=== PATIENT | female | born 1950 | race Caucasian/White ===

== ENCOUNTER 2016-07-13 09:32 | Inpatient (IN) | payer BC, OTHER ==
[2016-06-24 11:52] VITALS: BMI 29.0
--- NOTE | 2016-06-24 12:20 | PAT Medication Instructions ---
Service Date Jun 24, 2016. Current Home Medication List Aspirin (Aspirin Ec), 325 MG PO QAM Atorvastatin (Lipitor), 40 MG PO QPM Calcium Carbonate-Vitamin D (Calcium + D), 1,000 UNITS PO QAM Ibuprofen Tab (Advil), 400 MG PO PRN Levothyroxine Sodium (Levothyroxine Sodium), 1 TAB PO QAM Losartan Potassium (Cozaar), 50 MG PO QAM Mesalamine (Asacol Hd), 800 MG PO TID Metformin Hcl Er (Glucophage Er), 1,000 MG PO BID Medication Instructions For Your Scheduled Surgery Aspirin (Aspirin Ec), 325 MG PO QAM (change from aspirin 325mg to aspirin 81mg one week prior to surgery and continue as usual) - Hold the following medications 7-10 days prior to surgery: Ibuprofen Tab (Advil), 400 MG PO PRN - Hold the following medications 48 hours prior to surgery: Metformin Hcl Er (Glucophage Er), 1,000 MG PO BID - Hold the following medications the morning of surgery: Mesalamine (Asacol Hd), 800 MG PO TID (not told to stop by surgeon) Losartan Potassium (Cozaar), 50 MG PO QAM Calcium Carbonate-Vitamin D (Calcium + D), 1,000 UNITS PO QAM - Take the following medications the morning of surgery with a sip of water: Levothyroxine Sodium (Levothyroxine Sodium), 1 TAB PO QAM Aspirin 81mg Tylenol (if needed) - Take the following medications as scheduled the night before surgery: Mesalamine (Asacol Hd), 800 MG PO TID (not told to stop by surgeon) Atorvastatin (Lipitor), 40 MG PO QPM Tylenol (if needed) If you have any questions please call us at [phone] or [phone] ( [place]) or [phone]
[2016-06-24 13:00] LABS: BASO ABS # 0.07 K/uL (0-0.2); COMPLETE YES; EOS % 2.9 %; HEMATOCRIT 40.8 % (37-47); IG% 0.3 %; LYMPH % 20.3 %; LYMPH ABS # 1.39 K/uL (1.2-3.4); MEAN CELL VOLUME 83.6 fL (80-100); MEAN CORPUSCULAR HEMOGLOBIN 28.3 pg (25-34); MEAN CORPUSCULAR HGB CONC 33.8 g/dl (32-36); MEAN PLATELET VOLUME 9.4 fL (7.4-10.4); MONO % 6.6 %; NEUT % 68.9 %; PLATELET COUNT 367 K/uL (130-400); RED BLOOD COUNT 4.88 M/uL (4.2-5.4); WHITE BLOOD COUNT 6.85 K/uL (4.8-10.8)
[2016-06-24 13:04] LABS: URINE APPEARANCE CLEAR (CLEAR); URINE BILIRUBIN NEG (NEG); URINE COLOR YELLOW; URINE NITRITE NEG (NEG); URINE SPECIFIC GRAVITY 1.026 (1.000-1.030); UROBILINOGEN NEG (NEG); ZZUR CULT IF INDIC CLEAN CATCH NO
[2016-06-24 13:06] LABS: MANUAL MICROSCOPIC REQUIRED? NO; REVIEW REQ? NO
[2016-06-24 13:08] LABS: PARTIAL THROMBOPLASTIN RATIO 0.9; PROTHROMBIN TIME (PATIENT) 10.2 SECONDS (9.0-12.0)
--- NOTE | 2016-06-24 13:12 | DIAGNOSTIC IMAGING REPORT ---
TWO VIEW CHEST CLINICAL HISTORY: Preoperative examination. FINDINGS: PA and lateral chest radiographs are obtained. No prior studies are available for comparison at the time of dictation. The examination is modestly degraded by large body habitus. The heart is top normal for projection. There is mild atherosclerotic calcification of the thoracic and. The pulmonary vasculature is noncongested. Nonspecific interstitial thickening is noted. The lungs and pleural spaces are clear. There is no pneumothorax. The skeletal structures are osteopenic. Degenerative changes noted throughout the thoracic spine. Cholecystectomy clips are identified. IMPRESSION: No active disease in the chest. Electronically signed by: Edvin Sutton M.D. 06/24/2016 1:11 PM Dictated Date/Time: 06/24/2016 1:10 PM
[2016-06-24 13:26] LABS: BUN/CREATININE RATIO 19.3 (10-20); CALCIUM 8.9 mg/dl (8.5-10.1); CREATININE 0.89 mg/dl (0.60-1.20); POTASSIUM 3.5 mmol/L (3.5-5.1)
[2016-06-24 13:40] LABS: ESTIMATED AVERAGE GLUCOSE 157 mg/dl; HA1C FLAG Normal (Normal)
--- NOTE | 2016-07-12 08:27 | HISTORY & PHYSICAL EXAMINATION ---
DATE OF ADMISSION: 07/13/2016 CHIEF COMPLAINT: Right hip pain. HISTORY OF PRESENT ILLNESS: Dalia is a 66-year-old female with a multiple-year history of pain in her right hip. She rates her pain an 8/10. She has pain with her daily activities. She has limited standing and walking tolerance. Pain is worse with weightbearing. She has had home exercise program and anti-inflammatories without relief. She has failed conservative treatment and is scheduled for right hip replacement. PAST MEDICAL HISTORY: Hypertension, hypercholesterolemia, borderline diabetes. She denies heart disease or DVT. PAST SURGICAL HISTORY: Left total knee arthroplasty, breast reduction and discectomy. SOCIAL HISTORY: The patient denies alcohol or tobacco use. She lives in a single story home. She is and works as a [employer]. FAMILY HISTORY: Negative for DVT. MEDICATIONS: Metformin 500 mg 4 tablets daily, Asacol 800 mg 3 tablets daily, atorvastatin 40 mg daily, levothyroxine 25 mcg daily, Cozaar 50 mg daily, vitamin D 1000 IU daily, aspirin 325 mg daily. ALLERGIES: None. REVIEW OF SYSTEMS: See HPI. Ten other systems reviewed, all negative. PHYSICAL EXAMINATION: VITAL SIGNS: Height 5 foot 7, weight 197 pounds. BMI is 30. GENERAL: This is a well-developed, well-nourished female who is alert and oriented x3. Mood and affect are appropriate. HEENT: Normocephalic, atraumatic. Mucous membranes are moist and intact. NECK: Supple without lymphadenopathy. HEART: Regular rate and rhythm without murmurs, rubs or gallops. LUNGS: Clear to auscultation without wheezes or rhonchi. ABDOMEN: Soft and nontender. Bowel sounds are equal and active. EXTREMITIES: No ecchymosis, redness or warmth. Thigh and calf are soft and nontender. Log roll of the hip reproduces pain in the groin. She is neurovascularly intact. She walks with an antalgic gait. She has mild trochanteric tenderness. She has no distal edema. She is neurovascularly intact. X-RAY EXAMINATION: AP and lateral views show joint space narrowing and osteophyte formation. IMPRESSION: Degenerative joint disease, right hip. PLAN: The patient will be admitted for a right total hip arthroplasty. We will plan on aspirin for DVT prophylaxis. PCP is Dr. Alfredito Ward in [place]. She will have [facility] for home physical therapy.
[~2016-07-13] VITALS: Ht 170.2 cm; Wt 86.6 kg
[~2016-07-13 09:32] MED LIST: ACETAMINOPHEN 500 MG TAB PO SCH; ASPI325T39 PO; ATOR-24 PO; BUPIVACAINE 0.5 % 5 MG/1 ML PF 10ML VIAL ONE; CALC600T9 PO; CEFAZOLIN 2000 MG/60 ML D5W 60 ML IV SCH; CeleBREX 200 MG CAP PO SCH; FAMOTIDINE 20 MG TAB PO SCH; GABAPENTIN 300 MG CAP PO SCH; IBUP-103 PO; LACTATED RINGER'S 1000ML 1,000 ML IV SCH; LEVO25TA5 PO; LOSA50TA6 PO; MESA800T6 PO; METF500T5 PO; METOCLOPRAMIDE HCL 10 MG TAB PO SCH; OXYCODONE HCL 10 MG TABCR (OXYCONTIN) PO SCH; POLYMYXIN B SULFATE 100,000 UNITS in NSS 100ML IR SCH; ROPIVACAINE 5MG/ML 30 ML 150 MG, BUPIVACAINE/EPINEPHR 0.5% MPF 30 ML, KETOROLAC TROMETH... INFIL SCH; VANCOMYCIN INJ 400 MG in NSS 100ML IR SCH
[2016-07-13 09:52] VITALS: BP 143/92; PULSE 84; TEMP 36.8; O2SAT 97; Ht 170.2 cm; Wt 86.6 kg
[2016-07-13] MEDS ORDERED: NURSING VERBAL MED ORDER STA (10:09)
[2016-07-13] MEDS ORDERED: SCOPOLAMINE 1.5 MG TDSY TD ONE (10:15)
--- NOTE | 2016-07-13 11:43 | History & Physical Bridge Note ---
H&P Re-Evaluation Bridge Note: I have examined the patient, reviewed the History & Physical and in the interval since the performance of the History & Physical I have noted the following changes of clinical significance: No changes noted
[2016-07-13] MEDS ORDERED: FENTANYL CITRATE INJ 50 MCG/1 ML 2 ML VIAL ONE (11:49)
[2016-07-13] MEDS ORDERED: MIDAZOLAM HCL 1 MG/ML 2ML VIAL ONE (11:49)
[2016-07-13] MEDS ORDERED: LACTATED RINGER'S 1000ML 1,000 ML IV PRN (12:07)
[2016-07-13] MEDS ORDERED: POVIDONE-IODINE OP SOLN 30 ML BTL ONE (12:07)
[2016-07-13] MEDS ORDERED: BACITRACIN 50000 UNIT VIAL ONE (12:07)
[2016-07-13] MEDS ORDERED: ORTHO JOINT ANESTHETIC ONE (12:07)
[2016-07-13] MEDS ORDERED: PROPOFOL IV EMULSION 10 MG/ML 20 ML VIAL IV ONE (12:09)
[2016-07-13] MEDS ORDERED: LIDOCAINE HCL 2% 2 ML VIAL (20MG/ML) ONE (12:09)
[2016-07-13] MEDS: TRANEXAMIC ACID INJ 1,000 MG in SODIUM CHLORIDE 0.9% 100ML 100 ML IV SCH ×2 (12:13→16:09)
[2016-07-13] MEDS ORDERED: FENTANYL CITRATE INJ 50 MCG/1 ML 2 ML VIAL IV PRN (12:15)
[2016-07-13] MEDS ORDERED: ONDANSETRON INJ 2 MG/ML 2 ML VIAL IV PRN ×2 (12:15→14:15)
[2016-07-13] MEDS ORDERED: PHENYLEPHRINE 100MCG/ML 5ML SYR ONE (13:04)
--- NOTE | 2016-07-13 14:08 | [facility] Post Operative Brief Note ---
Immediate Operative Summary Operative Date Jul 13, 2016. Pre-Operative Diagnosis Right Hip Degenerative Joint Disease Post-Operative Diagnosis Right Hip Degenerative Joint Disease Procedure(s) Performed Right Total Hip Arthroplasty, Direct Anterior Approach Surgeon Dr. Jose Jacobson Airport Driver Surgeon(s) Tamar Ho PA-C Estimated Blood Loss 100 mL Findings DJD Specimens A: Right Femoral Head Complication(s) None Disposition Recovery Room / PACU
[2016-07-13] MEDS ORDERED: DiphenhydrAMINE HCL 50 MG/ML VIAL IV PRN (14:15)
[2016-07-13] MEDS ORDERED: OXYCODONE HCL IR 5 MG TAB (IMMEDIATE RELEASE) PO PRN (14:15)
[2016-07-13] MEDS ORDERED: METOCLOPRAMIDE HCL INJ 5 MG/ML 2 ML VIAL IV PRN (14:15)
[2016-07-13] MEDS ORDERED: BISACODYL 10 MG SUPP PR PRN (14:15)
[2016-07-13] MEDS ORDERED: MoRPHine SULFATE 2 MG/ML CARP IV PRN (14:15)
[2016-07-13] MEDS ORDERED: ALUMINUM/MAGNESIUM/SIMETH (MAALOX MAX) 30 ML UDC PO PRN (14:15)
[2016-07-13] MEDS ORDERED: MAGNESIUM HYDROXIDE SUSP 30 ML UDC PO PRN (14:15)
[2016-07-13] MEDS ORDERED: SOD PHOSPHATE/SOD BIPHOSPHATE ENEMA 132 ML BTL PR PRN (14:15)
[2016-07-13] MEDS ORDERED: TRAMADOL HCL 50 MG TAB PO PRN (14:15)
[2016-07-13] MEDS ORDERED: ZOLPIDEM TARTRATE 5 MG TAB PO PRN (14:15)
--- NOTE | 2016-07-13 14:31 | DIAGNOSTIC IMAGING REPORT ---
INTRAOPERATIVE RIGHT HIP SINGLE VIEW CLINICAL HISTORY: Right hip arthroplasty COMPARISON STUDY: No previous studies for comparison. FINDINGS: 12 seconds of fluoroscopic time was utilized. A single intraoperative fluoroscopic spot images provided for interpretation. There are postsurgical changes of a total right hip artery plasty. There is no dislocation. The distal aspect of the femoral spike is not included on the film IMPRESSION: Postsurgical changes of a total right hip arthroplasty. Electronically signed by: Carlos Salgado M.D. 07/13/2016 2:29 PM Dictated Date/Time: 07/13/2016 2:29 PM
--- NOTE | 2016-07-13 15:07 | DIAGNOSTIC IMAGING REPORT ---
SINGLE VIEW PELVIS; SINGLE VIEW RIGHT HIP CLINICAL HISTORY: Postoperative examination. FINDINGS: An AP portable view of the hips and lower pelvis with a crosstable lateral portable view of the right hip are obtained. A bipolar right hip arthroplasty is in near anatomic alignment. A single cortical lag screw transfixes the acetabular cup. No acute fracture is seen. There are expected postoperative changes overlying the right hip including subcutaneous gas, soft tissue swelling, and a surgical drain. Mild/moderate arthritic change is noted in the left hip. IMPRESSION: Expected postoperative findings status post right hip arthroplasty. No acute fracture is seen. Electronically signed by: Edvin Sutton M.D. 07/13/2016 3:06 PM Dictated Date/Time: 07/13/2016 3:05 PM
[2016-07-13] MEDS ORDERED: PHARMACY GLYCEMIC MGMT CONSULT PRN (15:08)
[2016-07-13] MEDS ORDERED: GLUCAGON FOR INJ 1 MG VIAL SQ PRN (15:15)
[2016-07-13] MEDS ORDERED: DEXTROSE 50% 50 ML SYR IV PRN (15:15)
[2016-07-13] MEDS ORDERED: GLUCOSE 40% GEL 15 GM TUBE PO PRN (15:15)
[2016-07-13] MEDS ORDERED: GLUCOSE 10 TABS/TUBE PO PRN (15:15)
--- NOTE | 2016-07-13 15:16 | Pharmacy Progress Note ---
Glycemic Control Intl Consult Date of Service Jul 13, 2016. Scope Glycemic Pharmacist consulted by Dr Breezy Jacobson on 07/13/16 for glycemic control and to write orders per [facility] inpatient glycemic control protocol Objective Weight (Kilograms): 86.60 Accuchecks BSG (last 24hrs): Test 07/13/16 09:52 07/13/16 14:37 Bedside Glucose 131 mg/dl (70-90) 119 mg/dl (70-90) HbA1c Test 06/24/16 12:30 Hemoglobin A1c 7.1 % (4.5-5.6) H Recent Pertinent Medications Outpatient Anti-diabetic Regimen: * Metformin ER 1g PO BID * A1c = 7.1 % 06/24/16 Risk Factors for Insulin Resistance: * Infection: Pre and post-op Ancef * Recent Surgery: POD #0 Right RONY * Diet: Type 2 DM Assessment & Plan ASSESSMENT: * 66 year old female, type 2 DM, controlled on metformin as outpatient. * I will begin patient on weight based correctional and prandial insulin, no basal, no steroids received. * ADA & AACE recommend a goal blood sugar range 140-180 mg/dl for the majority of critically ill & non-critically ill patients. However, more stringent targets may be selected in individual cases. Goal of 100-140mg/dL for patient's age, A1c, and to facilitate post op healing. PLAN FOR INPATIENT GLYCEMIC CONTROL: * Holding outpatient oral diabetes medications - restart in 1-2 days when renal function and diet evaluated * Correctional Insulin with NOVOLOG per scale ACHS or Q6hrs while NPO * Goal Range: Low 100 mg/dL - High 140 mg/dL * Correction Factor: 35 mg/dL/unit * Nutritional / Prandial insulin per carb ratio of 1 unit per 15 grams CHO consumed * Please note that the plan above was derived based on current level of insulin resistance and hospital stress. These recommendations are appropriate for inpatient admission only. Plan of care upon discharge will need to be reassessed to avoid potential outpatient hypo/hyperglycemia. Thank you.
--- NOTE | 2016-07-13 15:27 | Anesthesiology Progress Note ---
Anesthesia Post Op Note Date & Time Jul 13, 2016 at 15:27 Vital Signs Pain Intensity: 0 Vital Signs Past 12 Hours Date Time Temp Pulse Resp B/P Pulse Ox O2 Delivery O2 Flow Rate FiO2 07/13/16 15:20 36.5 72 18 106/69 100 Nasal Cannula 2 07/13/16 15:10 64 14 112/67 99 Nasal Cannula 2 07/13/16 15:00 66 14 118/76 100 Nasal Cannula 2 07/13/16 14:50 64 16 109/67 100 Mask 10 07/13/16 14:40 66 16 116/70 100 Mask 10 07/13/16 14:30 36.8 76 16 99/64 99 Mask 10 07/13/16 09:52 36.8 84 20 143/92 97 Room Air Notes Mental Status: alert / awake / arousable, participated in evaluation Pt Amnestic to Procedure: Yes Nausea / Vomiting: adequately controlled Pain: adequately controlled Airway Patency, RR, SpO2: stable & adequate BP & HR: stable & adequate Hydration State: stable & adequate Neuraxial Anesthesia: was administered, sensory block is resolving Anesthetic Complications: no major complications apparent Pt doing well.
[2016-07-13 16:15] VITALS: BP 137/80; PULSE 64; TEMP 36.5; O2SAT 98
[2016-07-13] MEDS: CHECK SCOPOLAMINE PATCH PLACEMENT SCH ×2 (16:30→23:48)
[2016-07-13 16:45] VITALS: BP 123/80; PULSE 67; TEMP 36.5; O2SAT 97
[2016-07-13 17:31] VITALS: BP 122/75; PULSE 73; TEMP 36.7; O2SAT 96
--- NOTE | 2016-07-13 17:40 | OPERATIVE REPORT ---
DATE OF OPERATION: 07/13/2016 PREOPERATIVE DIAGNOSIS: Degenerative arthritis, right hip. POSTOPERATIVE DIAGNOSIS: Same. PROCEDURE: Right total hip replacement. SURGEON: Jose Jacobson MD. BUTADIENE CONVERTER UTILITY OPERATOR: ANA MARÍA Sullivan. ANESTHESIA: Spinal. BLOOD LOSS: 100 mL. REPLACEMENT FLUIDS: 1500 mL crystalloid. DRAINS: Hemovacs x1. CULTURES: None. COMPLICATIONS: None. COMPONENTS USED: Llamas \T\ Nephew polar hip system: Acetabulum size 52, femur size 3 standard offset, femoral head 0, and neck length 36 mm Oxinium. NOTE: ANA MARÍA Sullivan was present and assisted throughout due to the complicated nature of this case. She helped with preparation and set up. She first assisted throughout and personally closed the fascial, subcutaneous and skin layers and applied the postoperative dressing. DESCRIPTION: Following satisfactory spinal, the patient was supine. The right leg was placed in the traction device and the left leg in the well leg shook. The right leg was prepared with ChloraPrep and draped sterilely. Following a surgical time-out, an anterior approach was performed in the interval between the sartorius and tensor muscles. The circumflex femoral vessels were identified and ligated. An anterior capsulotomy was performed exposing a severely arthritic femoral neck and head. The femoral neck and head were trimmed and removed and the acetabular self-retraining retractor was placed. Acetabular reaming and preparation was completed under fluoroscopy and a 52 shell was impacted into an anatomic position and secured with a dome screw. Local anesthetic was placed and after irrigation, the poly liner was placed. The femur was placed into position of external rotation, extension and adduction. Femoral canal was identified and prepared up to a size 3. A trial reduction with a 0 neck length head showed restorationism of leg lengths using fluoroscopy and good fit and fill of the proximal canal with fluoroscopy. The trial components were removed. The capsule was prepared with the orthopedic cocktail and after irrigation, the final implant was placed, the hip was reduced with fluoroscopy confirming the position. A Betadine soak was performed for 5 minutes. After 5 minutes, the Betadine was irrigated. The capsule was closed with 1 Vicryl interrupted. The drain was placed, the fascia with a running suture of 1 Vicryl. The subcutaneous tissues with 2-0 Vicryl and the skin with a running subcuticular stitch of 3-0 V-Loc. Dermabond and a dry dressing were applied. The patient was returned to her bed in stable condition. I attest to the content of the Intraoperative Record and any orders documented therein. Any exceptio ns are noted below.
[2016-07-13] MEDS: SODIUM CHLORIDE 0.9% 1000ML 1,000 ML IV SCH ×2 (17:42→23:43)
[2016-07-13] MEDS ORDERED: TRANEXAMIC ACID INJ 1,000 MG in SODIUM CHLORIDE 0.9% 100ML 100 ML IV ONE (18:00)
[2016-07-13 18:16] VITALS: BP 108/69; PULSE 80; O2SAT 95
[2016-07-13] MEDS: KETOROLAC TROMETHAMINE 15 MG/ML VIAL IV. SCH ×2 (18:36→23:42)
[2016-07-13] MEDS: ACETAMINOPHEN 500 MG TAB PO SCH (18:37)
[2016-07-13] MEDS: CEFAZOLIN IV 2,000 MG in DEXTROSE 5% 50ML 50 ML IV SCH (18:52)
[2016-07-13] MEDS: INSULIN ASPART 100 UNITS/ML 3 ML PEN SC SCH ×2 (18:56→21:07)
[2016-07-13] MEDS ORDERED: SENNA 8.6 MG TAB PO SCH (21:00)
[2016-07-13] MEDS ORDERED: ATORVASTATIN 40 MG TAB PO SCH (21:00)
[2016-07-13] MEDS: ASPIRIN 81 MG ECTAB PO SCH (21:07)
[2016-07-13 23:20] VITALS: BP 117/70; PULSE 80; TEMP 37; O2SAT 92
[2016-07-14] MEDS: CEFAZOLIN IV 2,000 MG in DEXTROSE 5% 50ML 50 ML IV SCH (02:08)
[2016-07-14] MEDS: ACETAMINOPHEN 500 MG TAB PO SCH ×2 (02:09→08:58)
[2016-07-14 03:16] VITALS: BP 115/69; PULSE 71; TEMP 36.9; O2SAT 95
[2016-07-14] MEDS: KETOROLAC TROMETHAMINE 15 MG/ML VIAL IV. SCH ×2 (05:53→12:00)
[2016-07-14] MEDS ORDERED: LEVOTHYROXINE 25 MCG TAB PO SCH (06:00)
[2016-07-14 06:23] LABS: BASO % 0.2 %; BASO ABS # 0.02 K/uL (0-0.2); COMPLETE YES; EOS % 0.1 %; HEMATOCRIT 33.9 % (37-47); IG% 0.2 %; LYMPH % 12.6 %; LYMPH ABS # 1.33 K/uL (1.2-3.4); MEAN CELL VOLUME 84.8 fL (80-100); MEAN CORPUSCULAR HEMOGLOBIN 28.3 pg (25-34); MEAN CORPUSCULAR HGB CONC 33.3 g/dl (32-36); MEAN PLATELET VOLUME 9.5 fL (7.4-10.4); MONO % 7.1 %; NEUT % 79.8 %; PLATELET COUNT 249 K/uL (130-400); WHITE BLOOD COUNT 10.57 K/uL (4.8-10.8)
[2016-07-14 06:58] LABS: BUN/CREATININE RATIO 19.5 (10-20); CREATININE 0.87 mg/dl (0.60-1.20); POTASSIUM 3.8 mmol/L (3.5-5.1)
[2016-07-14 07:59] VITALS: BP 130/68; PULSE 74; TEMP 36.7; O2SAT 94
[2016-07-14] MEDS: CHECK SCOPOLAMINE PATCH PLACEMENT SCH (08:00)
--- NOTE | 2016-07-14 08:02 | Orthopedic Progress Note ---
Orthopedic Progress Note Date of Service Jul 14, 2016. Subjective Post OP Day: 1 Reports: calf pain, feeling well, Denies: SOB, complaints, light headedness, nausea / vomiting Objective calves soft nontender, N/V intact, hip located, dressing C/D/I, A&O x3, toes mobile, hemovac drainage (100 last shift) Date Time Temp Pulse Resp B/P Pulse Ox O2 Delivery O2 Flow Rate FiO2 07/14/16 03:16 36.9 71 15 115/69 95 Room Air 07/13/16 23:20 37.0 80 15 117/70 92 Room Air 07/13/16 19:35 Room Air 07/13/16 18:16 80 18 108/69 95 Nasal Cannula 2.0 07/13/16 17:31 36.7 73 18 122/75 96 Nasal Cannula 2.0 07/13/16 16:45 36.5 67 16 123/80 97 Nasal Cannula 2.0 07/13/16 16:15 36.5 64 16 137/80 98 Nasal Cannula 2.0 07/13/16 16:11 Nasal Cannula 2.0 07/13/16 15:20 36.5 72 18 106/69 100 Nasal Cannula 2 07/13/16 15:10 64 14 112/67 99 Nasal Cannula 2 07/13/16 15:00 66 14 118/76 100 Nasal Cannula 2 07/13/16 14:50 64 16 109/67 100 Mask 10 07/13/16 14:40 66 16 116/70 100 Mask 10 07/13/16 14:30 36.8 76 16 99/64 99 Mask 10 07/13/16 09:52 36.8 84 20 143/92 97 Room Air Laboratory Results 24 Hours: Test 07/14/16 06:03 White Blood Count 10.57 K/uL Red Blood Count 4.00 M/uL Hemoglobin 11.3 g/dL Hematocrit 33.9 % Mean Corpuscular Volume 84.8 fL Mean Corpuscular Hemoglobin 28.3 pg Mean Corpuscular Hemoglobin Concent 33.3 g/dl Platelet Count 249 K/uL Mean Platelet Volume 9.5 fL Neutrophils (%) (Auto) 79.8 % Lymphocytes (%) (Auto) 12.6 % Monocytes (%) (Auto) 7.1 % Eosinophils (%) (Auto) 0.1 % Basophils (%) (Auto) 0.2 % Neutrophils # (Auto) 8.44 K/uL Lymphocytes # (Auto) 1.33 K/uL Monocytes # (Auto) 0.75 K/uL Eosinophils # (Auto) 0.01 K/uL Basophils # (Auto) 0.02 K/uL Assessment & Plan Assessment: POD 1 RONY Plan: IN HOME [facility] Inhouse Planning Pain Management: Celebrex, PO Tylenol, Oxy IR DVT Prophylaxis: TEDs, SCDs, ASA Discharge Planning Discharge Planning: home with home health Pain Management: Celebrex, PO Tylenol, Oxy IR DVT Prophylaxis: TEDs, ASA Therapy: Physical Therapy
--- NOTE | 2016-07-14 08:29 | Anesthesiology Progress Note ---
Anesthesia Post Op Note Date & Time Jul 14, 2016 at 08:28 Vital Signs Pain Intensity: 0.0 Vital Signs Past 12 Hours Date Time Temp Pulse Resp B/P Pulse Ox O2 Delivery O2 Flow Rate FiO2 07/14/16 07:59 36.7 74 18 130/68 94 Room Air 07/14/16 03:16 36.9 71 15 115/69 95 Room Air 07/13/16 23:20 37.0 80 15 117/70 92 Room Air Notes Mental Status: alert / awake / arousable, participated in evaluation Pt Amnestic to Procedure: Yes Nausea / Vomiting: adequately controlled Pain: adequately controlled Airway Patency, RR, SpO2: stable & adequate BP & HR: stable & adequate Hydration State: stable & adequate Neuraxial Anesthesia: sensory block resolved Anesthetic Complications: no major complications apparent
[2016-07-14 08:36] VITALS: O2SAT 94
[2016-07-14] MEDS ORDERED: CLB200 PO (08:48)
[2016-07-14] MEDS ORDERED: ONDA8TAB6 PO (08:48)
[2016-07-14] MEDS ORDERED: ASPEC81 PO (08:48)
[2016-07-14] MEDS ORDERED: SNK PO (08:48)
[2016-07-14] MEDS ORDERED: RXC5 PO (08:48)
[2016-07-14] MEDS ORDERED: ACET-1138 PO (08:48)
--- NOTE | 2016-07-14 08:50 | Discharge Instructions ---
Discharge Instructions Date of Service Jul 14, 2016. Admission Reason for Admission: Right Hip Degenerative Arthritis Discharge Discharge Diagnosis / Problem: sp right total hip Discharge Goals Goal(s): Decrease discomfort, Improve function, Increase independence Activity Recommendations Activity Limitations: per Instructions/Follow-up section . Instructions / Follow-Up Instructions / Follow-Up ACTIVITY RECOMMENDATIONS: SELF CARE INSTRUCTIONS AFTER TOTAL HIP REPLACEMENT : Direct Anterior Approach Until the incision and soft tissues around your hip have healed, there is a possibility that the hip prosthesis could dislocate. A. Hip flexion ( Up & Down out of chair or steps ) may be difficult. This is normal. B. Numbness in front of the thigh is also normal for a few weeks. C. Use hand rails when walking on stairs. D. Wear low heeled shoes with non-slip soles. E. Be sure that your floors are free of things that could trip you - throw rugs , electrical cords, small objects. Avoid wet and waxed floors, especially with crutches and canes. F. Try to walk several times a day with rest periods between. G. Continue with all the exercises taught to you in the hospital. Again, make walking a part of your daily routine. SPECIAL CARE INSTRUCTIONS: VERY IMPORTANT TO READ AND REVIEW A. You may still be at risk for phlebitis and blood clots. 1. Wear surgical stockings (SEDA hose) for 2 weeks after surgery to improve circulation and reduce swelling. 2. Take Aspirin 81mg twice daily for 4 weeks or as directed by your doctor. This is your blood thinner. 3. High risk patients may be prescribed a stronger blood thinner if necessary. 4. If you are on Coumadin normally, your family doctor/stone and concrete washer should monitor your blood work. Expect a phone call the day of or the day after bloodwork is drawn to adjust your dosage. B. You must take antibiotics before having dental work, bladder, bowel and other surgery. Your doctor will provide you with a permanent card to carry describing precautions. C. Call [facility] [place] if you have a fever, redness or swelling around the incision, cloudy drainage from incision, or sudden increase in pain in your hip, not relieved by your regular pain medication. D. Please call the office at if you have any concerns or questions about your operation or recovery. * YOU MAY SHOWER, NO TUB BATHS UNTIL CLEARED BY YOUR DOCTOR. - Keep an extra close eye on the top portion of your incision. Be sure to keep clean & dry. * WEAR SEDA HOSE 20 HOURS PER DAY FOR 2 WEEKS. * YOU MAY PROGRESS FROM A WALKER, TO A CANE, TO INDEPENDENT AT YOUR OWN PACE. * MOST PATIENTS WILL HAVE HOME NURSING FOR THERAPY. IF YOU DECIDE TO DO OUTPATIENT PHYSICAL THERAPY, PLEASE SCHEDULE THIS 3 TIMES PER WEEK. * DERMABOND Prineo- This is a mesh tape dressing that is covered with glue. It should remain in place until the incision is properly healed, usually 10-14 days. This dressing is designed to naturally slough off. You may trim the excess mesh tape as it peels off. Incision may be briefly wet in a shower. Dry immediately by blotting with a clean, dry towel. Do not bath or swim until instructed by your doctor. Do not scratch, rub, or pick at the dressing. Do not apply any topical ointments or lotions until dressing is completely removed and/or instructed by your doctor. There may be a small piece of suture material at one end of your incision. Do not pull or trim this. If it is bothersome or catching on clothing, you may cover it with a band-aid. FOLLOW UP VISIT: If appointment is not already scheduled: Please call [facility] [place] to make a follow-up appointment for 2 weeks after your surgery at . Current Hospital Diet Patient's current hospital diet: Diabetes Type 2 Diet Discharge Diet Recommended Diet: Regular Diet Procedures Procedures Performed: Right Total Hip Arthroplasty, Direct Anterior Approach Pending Studies Studies pending at discharge: no Laboratory Results Hemoglobin A1c Test 06/24/16 12:30 Range/Units Estimated Average Glucose 157 mg/dl Hemoglobin A1c 7.1 H 4.5-5.6 % Medical Emergencies . Who to Call and When: Medical Emergencies: If at any time you feel your situation is an emergency, please call 911 immediately. . Non-Emergent Contact Non-Emergency issues call your: Primary Care Provider . "Provider Documentation" section prepared by Tamar Ho. VTE Core Measure Inpt VTE Proph given/why not?: Other Anticoagulation, T.E.D. Stockings, SCD's [place] Drug Monitoring Program Search Results: patient reviewed within database, no issues identified
[2016-07-14] MEDS: INSULIN ASPART 100 UNITS/ML 3 ML PEN SC SCH ×2 (08:54→12:00)
[2016-07-14] MEDS: ASPIRIN 81 MG ECTAB PO SCH (08:57)
[2016-07-14] MEDS ORDERED: CALCIUM 600MG + VIT D 400 IU TAB PO SCH (09:00)
[2016-07-14] MEDS ORDERED: LOSARTAN POTASSIUM 50 MG TAB PO SCH (09:00)
[2016-07-14] MEDS ORDERED: PANTOprazole SOD 40 MG TAB PO SCH (09:00)
[2016-07-14] MEDS ORDERED: MULTIVITAMIN TAB PO SCH (09:00)
[2016-07-14] MEDS: SODIUM CHLORIDE 0.9% 1000ML 1,000 ML IV SCH (10:08)
[2016-07-14 12:06] VITALS: BP 126/72; PULSE 78; TEMP 36.5; O2SAT 93
[2016-07-14 13:52] VITALS: BP 126/72; PULSE 78; TEMP 36.5; O2SAT 93
[2016-07-14] MEDS ORDERED: PNEUMOCOCCAL ADMINISTRATION CHARGE ONE (16:30)
[2016-07-14] MEDS ORDERED: PNEUMOCOCCAL POLYSACCHARIDES 25 MCG/0.5 ML VIAL/SYR IM. ONE (16:30)
[2016-07-14] MEDS ORDERED: METFORMIN HCL 500 MG TABCR PO SCH (17:45)
[2016-07-16] MEDS ORDERED: CeleBREX 200 MG CAP PO SCH (09:00)
--- NOTE | 2016-07-19 14:12 | DISCHARGE SUMMARY ---
DISCHARGE DIAGNOSIS: Degenerative joint disease, right hip. SECONDARY DIAGNOSIS: None. CONSULTS: None. COMPLICATIONS: None. PROCEDURE: The patient underwent a right total hip arthroplasty with Dr. Jacobson on 07/13/2016. BRIEF HISTORY: Please see previously dictated history and physical. HOSPITAL SUMMARY: The patient was admitted on the above noted day for the above procedure. Procedure went without complication. Postop day 1, patient was feeling well without complaints. She denied chest pain or shortness of breath. Vital signs were stable. She was afebrile. Dressing was clean, dry and intact. She was neurovascularly intact. Calves were soft and nontender. Hemovac drained 100 mL. Hemoglobin was 11.3. The patient began physical therapy per protocol. She was discharged to home later that day in stable condition. For further review please see the chart. Lab, x-ray, data and discharge instructions as per chart.
== END 2016-07-14 14:38 | disposition home health service (06) | DRG 470 ==
LOC: ENRESERVTM → ENRESERVDT → C.ACU 09:32 → C.3E 11:30
PROVIDERS: ADMIT Orthopaedic Surgery; ATTEND Orthopaedic Surgery
PROC: 0SR904Z Replacement of Right Hip Joint with Ceramic on Polyethylene Synthetic Substitute, Open Approach (ICD-10-PCS; principal; 2016-07-13 11:45)
DX: M16.11 Unilateral primary osteoarthritis, right hip (principal); I10 Essential (primary) hypertension; E78.00 Pure hypercholesterolemia, unspecified; R73.03 Prediabetes; K52.9 Noninfective gastroenteritis and colitis, unspecified; Z96.652 Presence of left artificial knee joint; Z79.82 Long term (current) use of aspirin; Z79.84 Long term (current) use of oral hypoglycemic drugs; Z79.899 Other long term (current) drug therapy

== ENCOUNTER 2023-03-09 05:52 | Observation (INO) ==
--- NOTE | 2023-02-08 10:56 | PAT Medication Instructions ---
Medication Instructions Date of Service February 08, 2023 Home Medications aspirin 81 mg tablet,delayed release 81 mg PO QAM atorvastatin 40 mg tablet 40 mg PO HS biotin 5,000 mcg sublingual tablet 5,000 mcg sublingual QAM [id number] 333 mg-133 mg-5 mg tablet 1 tab PO QAM cholecalciferol (vitamin D3) 25 mcg (1,000 unit) chewable tablet (Vitamin D3) 25 mcg PO QAM cinnamon bark 500 mg capsule (Cinnamon) 1,000 mg PO BID cyanocobalamin (vitamin B-12) 500 mcg sublingual tablet 500 mcg sublingual QAM glucosamine sulf dipot chlr,msm,chond 550 mg-C 30 mg-linda 1 mg capsule (Glucosamine Chondroitin) 1 cap PO BID levothyroxine 25 mcg tablet 25 mcg PO QAM losartan 50 mg tablet 50 mg PO HS metformin 1,000 mg tablet 1,000 mg PO BID STOP taking 2 weeks before surgery (or as soon as possible if surgery is within 2 weeks) biotin 5,000 mcg sublingual tablet 5,000 mcg sublingual QAM cinnamon bark 500 mg capsule (Cinnamon) 1,000 mg PO BID cyanocobalamin (vitamin B-12) 500 mcg sublingual tablet 500 mcg sublingual QAM glucosamine sulf dipot chlr,msm,chond 550 mg-C 30 mg-linda 1 mg capsule (Glucosamine Chondroitin) 1 cap PO BID DO NOT take the morning of surgery [id number] 333 mg-133 mg-5 mg tablet 1 tab PO QAM cholecalciferol (vitamin D3) 25 mcg (1,000 unit) chewable tablet (Vitamin D3) 25 mcg PO QAM metformin 1,000 mg tablet 1,000 mg PO BID Take morning of surgery With a small sip of water, OTHERWISE NOTHING TO EAT OR DRINK AFTER MIDNIGHT: aspirin 81 mg tablet,delayed release 81 mg PO QAM (unless directed otherwise by surgeon) levothyroxine 25 mcg tablet 25 mcg PO QAM Take evening before surgery atorvastatin 40 mg tablet 40 mg PO HS losartan 50 mg tablet 50 mg PO HS metformin 1,000 mg tablet 1,000 mg PO BID Other Notes If you have any questions please call us at [phone] or [phone] or [phone] or [phone]
--- NOTE | 2023-02-11 12:35 | Anesthesiology Consultation ---
Date of Service February 11, 2023 Assessment & Plan (1) Encounter for pre-operative examination: - type and screen abnormal: Patient will need to have repeat testing by their department which can be done day of surgery an additional hour earlier than typical arrival time per [place] with blood bank. Surgeon's office and OR made aware. - check BSG am DOS. - PONV: patient often receives scop patch, will defer to anesthesiologist discretion am DOS if this is to be applied given age > 65 years. - Outpatient joint assessment: Patient is currently scheduled for inpatient pathway. If re-evaluated and patient/surgeon requests outpatient pathway, patient is not recommended candidate for outpatient joint program from anesthesia standpoint based on available information given patient precautions with positional changes/vertigo. Chart Review Chart Review: Acceptable Risk for Surgery and Patient seen in Pre Admission Testing Teaching & Discussion Pre-Anesthesia Teaching/Discussion Notes: Instructed NPO after midnight before surgery, except medications with 15 cc of water. Medication instructions provided according to the PAT guidelines. History Surgery Operation Date: 03/09/23 08:10 Proposed Procedures p Right Total Knee Arthroplasty - Rafael Freed DO Height/Weight Height: 5 ft 7 in Weight: 76.9 kg Allergies Allergy/AdvReac Type Severity Reaction Status Date / Time No Known Allergies Allergy Verified 02/04/23 08:37 Medications Home Medications Medication Instructions Recorded Confirmed Last Taken aspirin 81 mg tablet,delayed 81 mg PO QAM 02/04/23 02/04/23 Unknown release atorvastatin 40 mg tablet 40 mg PO HS 02/04/23 02/04/23 Unknown biotin 5,000 mcg sublingual tablet 5,000 mcg sublingual QAM 02/04/23 02/04/23 Unknown huyvhei-wwcvqveli-qfjv 333 mg-133 1 tab PO QAM 02/04/23 02/04/23 Unknown mg-5 mg tablet cholecalciferol (vitamin D3) 25 25 mcg PO QAM 02/04/23 02/04/23 Unknown mcg (1,000 unit) chewable tablet (Vitamin D3) cinnamon bark 500 mg capsule 1,000 mg PO BID 02/04/23 02/04/23 Unknown (Cinnamon) cyanocobalamin (vitamin B-12) 500 500 mcg sublingual QAM 02/04/23 02/04/23 Unknown mcg sublingual tablet glucosamine sulf dipot 1 cap PO BID 02/04/23 02/04/23 Unknown chlr,msm,chond 550 mg-C 30 mg-linda 1 mg capsule (Glucosamine Chondroitin) levothyroxine 25 mcg tablet 25 mcg PO QAM 02/04/23 02/04/23 Unknown losartan 50 mg tablet 50 mg PO HS 02/04/23 02/04/23 Unknown metformin 1,000 mg tablet 1,000 mg PO BID 02/04/23 02/04/23 Unknown Past Medical History Medical History Cardiac murmur Echo 08/2022 (indication: murmur): no significant valvular disease Diabetes mellitus, type 2 NIDDM History of anesthesia reaction dizziness (usually wears patches behind ears to help with this); denies adverse effects with scop patch in past Hyperlipidemia Hypertension controlled, stable per pt Hypothyroidism Kidney stones 3 yrs ago Vertigo controlled, stable per pt with intentionally slow position changes Patient denies h/o stroke, seizures, heart attack, heart failure, blood clots/DVTs or blood transfusions. Exercise / Class Metabolic Activity II 4-5 Yardwork/Stairs/Walk up hill (denies chest discomfort or shortness of breath with 1 FOS) Past Surgical History Surgical History History of bunionectomy right History of cholecystectomy History of colonoscopy History of esophagogastroduodenoscopy (EGD) History of lithotripsy History of Mohs micrographic surgery for skin cancer multiple, most recently left lower leg History of tooth extraction History of total hip arthroplasty Right anterior RONY (07/13/16): SAB at L4-5 at [facility] History of total knee replacement left Hx of bilateral breast reduction surgery Hx of vein stripping Nausea and vomiting after administration of anesthetic agent Past Anesthesia History No Hx of Anesthesia Complications and No Family Hx of Anesthesia Complications History of PONV History of PONV (receives scop patch with benefit, denies adverse effects) and Hx of Motion Sickness Social History Smoking Status: Never smoker Do You Dip or Chew Tobacco: No Hx Alcohol Use: Yes alcohol intake frequency: holidays/special occasions only Hx Substance Use: No substance use type: does not use Review of Systems Patient denies chest pain, shortness of breath, dyspnea on exertion, snoring, witnessed apneas, reflux, fever, chills, cough, wheezing, or palpitations. Physical Exam Vital Signs Vitals BP 103/69 P 81 TEMP 98.3 SP02 95% on RA RESP 18 Physical Patient resting comfortably in chair in no acute distress, alert and oriented, responding appropriately throughout visit Full cervical extension range of motion without pain TMD 3.5 finger breadths Mallampati Score 2 Dentition: intact, denies chipped or loose teeth, caps/crowns, implants or bridges Lungs: normal respiratory effort. Good air movement, clear throughout to auscultation, no adventitious breath sounds Cardiac: regular rate and rhythm, no murmurs noted Carotid arteries: negative bruit bilat Lab Results Anesthesia Preop Results Results Anesthesia Widget: WBC 6.97 K/ul (4.8-10.8) 02/11/23 Hgb 12.9 g/dl (12.0-16.0) 02/11/23 Hct 39.0 % (37.0-47.0) 02/11/23 Plt 371 K/uL (130-400) 02/11/23 Na 140 mmol/L (136-145) 02/11/23 K 3.7 mmol/L (3.5-5.1) 02/11/23 Cl 105 mmol/L (98-107) 02/11/23 CO2 28 mmol/L (21-32) 02/11/23 BUN 19 mg/dl (6-23) 02/11/23 Creat 0.62 mg/dl (0.6-1.2) 02/11/23 Glucose Level 109 mg/dl (70-99(Fasting)) H 02/11/23 PT 10.8 Seconds (9.0-12.0) 02/11/23 PTT 25.9 Seconds (21.0-31.0) 02/11/23 INR 1.0 (0.9-1.1) 02/11/23 HA1c 6.7 % (4.5-5.6) H 02/11/23 Urine Color Yellow 02/11/23 Urine Appearance Cloudy (Clear) A 02/11/23 Urine pH 5.0 (4.5-7.5) 02/11/23 Urine Specific [place] 1.016 (1.000-1.030) 02/11/23 Urine Protein Negative (Negative) 02/11/23 Urine Glucose (UA) Negative (Negative) 02/11/23 Urine Ketones Negative (Negative) 02/11/23 Urine Blood 3+ (Negative) H 02/11/23 Urine Nitrite Positive (Negative) A 02/11/23 Urine Bilirubin Negative (Negative) 02/11/23 Urine Urobilinogen Negative (Negative) 02/11/23 Urine Leukocyte Esterase 2+ (Negative) H 02/11/23 Urine WBC (Auto) >30 /hpf (0-5) H 02/11/23 Urine RBC (Auto) >30 /hpf (0-4) H 02/11/23 Urine Hyaline Casts (Auto) 1-5 /lpf (0-5) 02/11/23 Urine Epithelial Cells (Auto) 5-10 /lpf (0-5) H 02/11/23 Urine Bacteria (Auto) 2+ (Negative) H 02/11/23 Blood Type A Positive 02/11/23 Antibody Screen POSITIVE A 02/11/23 Testing Laboratory Results Surgeon's office notified of abnormal UA. Electrocardiogram Date: 05/31/22 NSR, rate 83 bpm Nonspecific T abnormalities Chest X-Ray Date: 02/11/23 No active disease in the chest Echocardiogram Date: 08/30/22 EF 65% Normal wall motion No significant valvular pathology
--- NOTE | 2023-02-15 09:36 | History & Physical Report ---
Date of Service February 15, 2023 date of surgery: 03/09/23 Procedure: Right Total Knee Arthroplasty Surgeon: Rafael Freed Assessment & Plan (1) Arthritis of right knee: Plan: Presents for evaluation of chronic right knee pain, she been having pain in his knee for many years now which gradually worsened and is now affecting her daily activities. X-rays taken show advanced degenerative changes of the right knee with ezjk-lj-eyle medial compartment and patellofemoral joint with joint space narrowing osteophyte formation. Discussed treatment options she is elected proceed with surgical invention. She has undergone left knee replacement [address] Freed and has done quite well, she does have a right hip replacement on that side which would require a patient-matched knee replacement. We will proceed with scheduling of her [facility] patient- matched right total knee replacement sometime in March. The risks and benefits have been discussed including, but not limited to, risk of infection, nerve injury, stiffness, loss of motion, failure to improve, etc. Reasonable outcomes and options of treatment were discussed. An explanation of appropriate alternatives to the procedure that may be advantageous were discussed and their risks and benefits, as well as the risks and benefits of not proceeding with treatment. I offered to answer any additional inquiries concerning the treatment involved. All the patient's questions were answered. The patient is agreeable, understanding of the treatment plan and alternatives, and wishes to proceed with the treatment plan. History of Present Illness Chief Complaint: Right knee pain Primary Care Provider: Kimberly Gómez is a 72 year old who complains of right knee pain, presents for pre-op evaluation prior to a right total knee replacement by Dr Freed at [facility]. She complains of pain, decreased range of motion, instability and stiffness in her right knee. she states that the symptoms have been chronic and non-traumatic and states that the symptoms occur constantly with intermittent worsening. Currently the patient states that the symptoms are moderate-severe. The pain is described as aching, sharp and throbbing. The symptoms occur continuously. The symptoms are aggravated by ascending stairs, daily activities, first steps while awake walking. Prior NSAIDs include IBU and Aleve. She has been treated with previous injections in the past without much relief. Allergies Allergy/AdvReac Type Severity Reaction Status Date / Time No Known Allergies Allergy Verified 02/04/23 08:37 Home Medications Medication Instructions Recorded Confirmed Type aspirin 81 mg tablet,delayed 81 mg PO QAM 02/04/23 02/04/23 History release atorvastatin 40 mg tablet 40 mg PO HS 02/04/23 02/04/23 History biotin 5,000 mcg sublingual tablet 5,000 mcg sublingual QAM 02/04/23 02/04/23 History fswfmls-eudqsureb-irih 333 mg-133 1 tab PO QAM 02/04/23 02/04/23 History mg-5 mg tablet cholecalciferol (vitamin D3) 25 25 mcg PO QAM 02/04/23 02/04/23 History mcg (1,000 unit) chewable tablet (Vitamin D3) cinnamon bark 500 mg capsule 1,000 mg PO BID 02/04/23 02/04/23 History (Cinnamon) cyanocobalamin (vitamin B-12) 500 500 mcg sublingual QAM 02/04/23 02/04/23 History mcg sublingual tablet glucosamine sulf dipot 1 cap PO BID 02/04/23 02/04/23 History chlr,msm,chond 550 mg-C 30 mg-linda 1 mg capsule (Glucosamine Chondroitin) levothyroxine 25 mcg tablet 25 mcg PO QAM 02/04/23 02/04/23 History losartan 50 mg tablet 50 mg PO HS 02/04/23 02/04/23 History metformin 1,000 mg tablet 1,000 mg PO BID 02/04/23 02/04/23 History Past Med/Surg History Medical History Cardiac murmur Echo 08/2022 (indication: murmur): no significant valvular disease Diabetes mellitus, type 2 NIDDM History of anesthesia reaction dizziness (usually wears patches behind ears to help with this); denies adverse effects with scop patch in past Hyperlipidemia Hypertension controlled, stable per pt Hypothyroidism Kidney stones 3 yrs ago Vertigo controlled, stable per pt with intentionally slow position changes Surgical History History of bunionectomy right History of cholecystectomy History of colonoscopy History of esophagogastroduodenoscopy (EGD) History of lithotripsy History of Mohs micrographic surgery for skin cancer multiple, most recently left lower leg History of tooth extraction History of total hip arthroplasty Right anterior RONY (07/13/16): SAB at L4-5 at [facility] History of total knee replacement left Hx of bilateral breast reduction surgery Hx of vein stripping Nausea and vomiting after administration of anesthetic agent Social History Smoking Status: Never smoker Second Hand Exposure: Yes ( smoked); Do You Dip or Chew Tobacco: No; Hx Alcohol Use: Yes Hx Substance Use: No Preferred Language: Niuean Communication Ability: Effective Anesthesiologist Assistant Certified Required: No Beliefs That Will Affect Care: None Current Living Situation: Alone Feels Safe at Home: Yes Assistive Devices: Glasses Review of Systems Review of Systems: All systems reviewed & are unremarkable except as noted in HPI & below Constitutional: no fever, no chills and no sweats Respiratory: no cough and no dyspnea Cardiovascular: no chest pain, no dyspnea and no orthopnea Gastrointestinal: no abdominal pain, no nausea and no vomiting Musculoskeletal: as per Subjective / HPI Physical Exam Constitutional: WD/WN, vitals as above no acute distress Respiratory: normal respiratory effort, lungs clear to auscultation no respiratory distress, no labored breathing and does not use accessory muscles Cardiovascular: RRR, no murmur, no edema Gastrointestinal (Abdomen): normal bowel sounds, soft, nontender, no hepatosplenomegaly Musculoskeletal: Knee: + knee abnormal to inspection (right knee), + effusion (+1 effusion), + limited ROM of knee (ROM 0/3/110), + knee ROM with crepitation, + joint line tenderness (medial joint line) and + Gemma's sign positive; no deformity, no skin erythema, no ecchymosis, no valgus laxity, no varus laxity, anterior drawer test negative, Danny's sign negative and pivot shift test negative Results & Data Results & Data Diagnostic Findings X-rays taken show advanced degenerative changes of the right knee with boij-xb-iwim medial compartment and patellofemoral joint with joint space narrowing osteophyte formation.
[2023-03-09] MEDS ORDERED: ROPIVACAINE 0.5% HCL/PF 150 MG, BUPIVACAINE 0.75% MPF 20 ML, EPINEPHrine 30MG/30ML (OR ... INSTIL SCH (06:00)
[2023-03-09] MEDS ORDERED: TRANEXAMIC ACID 1,000 MG **IV Intra-op IV SCH (06:00)
[2023-03-09] MEDS ORDERED: METOCLOPRAMIDE HCL 10 MG TABLET PO SCH (06:00)
[2023-03-09] MEDS ORDERED: LR 500ML BOLUS, THEN 15ML/HR IV SCH (06:00)
[2023-03-09] MEDS ORDERED: TRANEXAMIC ACID 1,000 MG **IV Pre-op IV SCH (06:00)
[2023-03-09] MEDS ORDERED: ACETAMINOPHEN 500 MG TAB PO SCH (06:00)
[2023-03-09] MEDS ORDERED: ceFAZolin 2000MG 2,000 MG/15 ML SYR IV SCH (06:00)
[2023-03-09] MEDS ORDERED: LR 60ML/HR IV SCH (06:00)
[2023-03-09] MEDS ORDERED: CeleBREX 200 MG CAP PO SCH (06:00)
[2023-03-09] MEDS ORDERED: GABAPENTIN 300 MG CAP PO SCH (06:00)
[2023-03-09] MEDS ORDERED: FAMOTIDINE 20 MG TAB PO SCH (06:00)
[2023-03-09] MEDS ORDERED: BUPIVACAINE 0.5 % 5 MG/1 ML PF 10ML VIAL ONE (07:08)
[2023-03-09] MEDS ORDERED: BUPIVACAINE 0.25% PF 30 ML VIAL ONE (07:08)
[2023-03-09] MEDS ORDERED: MIDAZOLAM HCL 1 MG/ML 2ML VIAL ONE (08:11)
--- NOTE | 2023-03-09 08:29 | History & Physical Bridge Note ---
Date of Service March 09, 2023 History & Physical Bridge Note I have examined the patient, reviewed the History & Physical and in the interval since the performance of the History & Physical I have noted the following changes of clinical significance: no changes noted
[2023-03-09] MEDS ORDERED: ATROPINE SULFATE 0.1 MG/ML 10ML SYR IV PRN (08:50)
[2023-03-09] MEDS ORDERED: fentaNYL citrate PF 100 MCG/2 ML VIAL IV PRN (08:50)
[2023-03-09] MEDS ORDERED: PROMETHAZINE HCL 6.25 MG in SODIUM CHLORIDE 0.9% 50 ML IV PRN (08:50)
[2023-03-09] MEDS ORDERED: ONDANSETRON INJ 2 MG/ML 2 ML VIAL IV PRN ×2 (08:50→14:12)
[2023-03-09] MEDS ORDERED: ePHEDrine sulfate 50 MG/ML AMP IV PRN (08:50)
[2023-03-09] MEDS ORDERED: HYDROmorphone INJ 1 MG/ML SYRINGE IV PRN (08:50)
[2023-03-09] MEDS ORDERED: SCOPOLAMINE 1 MG TDSY TD STA (08:53)
[2023-03-09] MEDS ORDERED: ORTHO JOINT ANESTHETIC ONE (09:43)
[2023-03-09] MEDS ORDERED: PROPOFOL IV EMULSION 10 MG/ML 20 ML VIAL IV ONE ×2 (10:00→11:26)
--- NOTE | 2023-03-09 10:51 | Operative Report ---
Post Operative Report Pre & Post Diagnosis Operation Date: 03/09/23 09:00 Pre-Op Diagnosis: Right Knee Osteoarthritis Post-Op Diagnosis: Right Knee Osteoarthritis I identified the patient and participated in the time-out.: Yes Procedure Operation Date: 03/09/23 09:00 Actual Procedures p Right Total Knee Arthroplasty, Cemented(Right) Utilizing [facility] 2 patient-matched total knee arthroplasty size femur 5 tibia 4 poly 13 patella 32 summer Freed DO Surgeon Rafael Freed DO Dry Box Tender Omer GOTTI Estimated Blood Loss 5 Findings Consistent with Post-Op Diagnosis Patient presents with severe end-stage DJD right knee varus alignment subchondral sclerosis marginal osteophytes subchondral cystic changes eburnated [id number] with a moderate to large effusion Specimens Bone and cartilage Drains Medium bore Hemovac Anesthesia Type MAC Spinal Regional Complications none Disposition Accompanied Patient To Recovery: No Disposition: Recovery Room Indications Patient presents after failing attempted conservative management including physical therapy anti-inflammatories relative rest activity modification corticosteroid injection the above intraoperative findings were noted Description of Procedure After proper prepping and draping of the Right lower extremity anterior midline incision was made over the region of the extensor extensor mechanism after meticulous hemostasis was obtained and maintained in subcutaneous tissues a medial parapatellar incision was made The patella was subluxed lateralward the medial lateral gutter were cleaned from any hypertrophic synovitis and scar tissue of the distal femoral block was placed and the distal femoral osteotomy cut was made subsequently the chamfers anterior and posterior osteotomy cuts were made utilizing the 4-in-1 block the tibia was subsequently subluxed anteriorward medial and ateral meniscal remnants were excised in their entirety remnants of the anterior and posterior cruciate ligaments were excised in their entirety excellent exposure of the proximal tibia was obtained the tibial os teotomy guide was placed on the proximal tibial osteotomy cut was made once again the knee was irrigated with copious amounts of sterile saline solution the patella was subsequently everted lateralward thickened scar tissue around the patella was removed the patella was subsequently cut utilizing a freehand technique and was drilled prepared for final preparation and placement of patella socially flexion-extension gaps were checked and the equal and symmetric trials were placed to the appropriate femoral and tibial trials with poly-spacer being placed for equal flexion and extension gaps and full range of motion including extension to 0 and flexion to 140 the trial components after having been taken to recovery range of motion was subsequently removed meticulous hemostasis was obtained and maintained subsequently a knee block injection of joint cocktail including ropivacaine 0.5% 150 mg. Bupivacaine 0.5% epinephrine 1-200,030 mL's toradol 30 mg dexamethasone 4 mg ketamine 10 mg clonidine 100 micrograms normal saline solution 30 mg was infiltrated into the soft tissues of the posterior knee medial lateral gutters and periosteal synovium special attention was paid to protect neurovascular structures at all times subsequently trial components having been removed the knee was irrigated with sterile saline solution. debris was removed the proximal tibia was subsequently prepared and was made ready for the placement of the tibial component tibial component was also cemented and tamped into position the femoral component was subsequently placed and cemented in the position the patellar component was subsequently cemented in position because hemostasis once again obtained and maintained wound having been thoroughly irrigated with debridement and debridement lavage was performed as well as a medial parapatellar incision closed with #1 Vicryl in interrupted fashion subcutaneous was closed with #2 Vicryl skin was closed with skin clips. PA-C was necessary for prepping and drapping as well as wound closure of deep fascia Sub cutaneous tissue and skin and was necessary for the case. A sterile compressive dressing was placed patient was taken to recovery in stable condition of report dictated by Abdiaziz I attest to the content of the Intraoperative Record and any orders documented therein. Any exceptions are noted below.Due to the complex nature of the pr ocedure, the entire surgery was performed with the operational assistance of Omer GOTTI. The assistant professor of economics, under direct supervision, was involved in the actual performance of all aspects of the surgical procedure including hemostasis, tissue retraction and incision, instrument management, patient positioning, and wound closure. I attest to the content of the Intraoperative Record and any orders documented therein. Any exceptions are noted below.
--- NOTE | 2023-03-09 12:35 | XRay Report ---
RIGHT KNEE 2 VIEWS History: Right total knee arthroplasty. Degenerative arthritis. Postop. FINDINGS: The patient is status post a right total knee arthroplasty. The hardware is intact. No frac ture or dislocation. Surgical drains are in place. IMPRESSION: Right total knee arthroplasty. No evidence for hardware complication. ACT 112: Negative or not required by law. Electronically signed by: Shaq Catherine M.D. 03/09/2023 12:34 PM
--- NOTE | 2023-03-09 13:36 | Anesthesiology Progress Note ---
Date of Service March 09, 2023 Anesthesia Post Procedure Vital Signs Vital Signs: Temp Pulse Pulse Resp BP Pulse Ox O2 Del Method 03/09/23 13:15 59 L 15 126/66 94 Room Air 03/09/23 13:00 66 15 116/70 97 Room Air 03/09/23 12:50 36.4 C L 62 20 126/67 94 Room Air 03/09/23 12:30 66 21 138/75 96 Room Air 03/09/23 12:40 63 14 132/63 97 Room Air 03/09/23 12:20 69 23 132/78 97 Room Air 03/09/23 12:10 68 12 115/73 97 Room Air 03/09/23 12:00 71 20 107/66 98 Room Air 03/09/23 11:50 67 16 116/63 99 Room Air 03/09/23 11:40 69 16 120/66 100 Oxymask 03/09/23 11:30 36.2 C L 73 16 99/53 L 96 Oxymask 03/09/23 06:51 36.7 C 73 20 135/80 95 Room Air O2 Flow Rate 03/09/23 13:15 03/09/23 13:00 03/09/23 12:50 03/09/23 12:30 03/09/23 12:40 03/09/23 12:20 03/09/23 12:10 03/09/23 12:00 03/09/23 11:50 03/09/23 11:40 3 03/09/23 11:30 6 03/09/23 06:51 Transfer of Care Handoff Completed per policy Notes Mental Status: alert / awake / arousable and participated in evaluation Patient Amnestic to Procedure: Yes Nausea / Vomiting: adequately controlled Pain: adequately controlled Airway Patency, RR, SpO2: stable & adequate BP & HR: stable & adequate Hydration State: stable & adequate Neuraxial Anesthesia: was administered and sensory block is resolving Anesthetic Complications: no major complications apparent and Pt Satisfied with anesthetic care
[2023-03-09] MEDS ORDERED: NALOXONE HCL 0.4 MG/1 ML VIAL/CARP IV PRN (14:12)
[2023-03-09] MEDS ORDERED: MAGNESIUM HYDROXIDE SUSP 30 ML UDC PO PRN (14:12)
[2023-03-09] MEDS ORDERED: PHARMACY GLYCEMIC MGMT CONSULT PRN (14:12)
[2023-03-09] MEDS ORDERED: HYDROmorphone INJ 0.5 MG/0.5 ML SYR IV PRN (14:12)
[2023-03-09] MEDS ORDERED: bisacodyL 10 MG SUPP PR PRN (14:12)
[2023-03-09] MEDS: SODIUM CHLORIDE 0.9% 1,000 ML IV SCH (14:38)
[2023-03-09] MEDS: ACETAMINOPHEN 500 MG TAB PO SCH ×2 (14:41→21:27)
[2023-03-09] MEDS: INSULIN ASPART PER UNIT CHARGE SC SCH ×3 (14:43→21:18)
--- NOTE | 2023-03-09 14:55 | Pharmacy Report ---
Pharmacy Glycemic Short Note 2 - Date of Service March 09, 2023 - Glycemic Short BSG Results (Last 24 hours): 03/09/23 03/09/23 03/09/23 06:29 11:36 14:37 POC Glucose 120 H 107 H 117 H OUTPATIENT ANTIDIABETIC REGIMEN: * metformin 1000mg BID * HbA1c 6.7% ASSESSMENT: * Dalia is a 72 YOF admitted status post right total knee arthroplasty with a history of T2DM. Pharmacy has been consulted for glycemic management while in patient * Fasting BSG was within goal range. She received an ortho mix and Ancef during the procedure. Will add a Lantus scale at bedtime for significant hyperglycemia. * Novolog initiated at a weight based stress of 2 PLAN FOR INPATIENT GLYCEMIC CONTROL: * Hold outpatient oral diabetes medications * Basal insulin * Lantus 0-10 units HS (see EMAR for details) * Bolus insulin * NovoLog per scale ACHS or Q6hrs while NPO * Goal Range: Low 110 mg/dL - High 140 mg/dL * Correction Factor: 30 mg/dL/unit * Nutritional / Prandial insulin per carb ratio of 1 unit per 10 grams CHO consumed
[2023-03-09] MEDS ORDERED: CHECK SCOPOLAMINE PATCH PLACEMENT SCH (16:00)
[2023-03-09] MEDS: ceFAZolin 2000MG 2,000 MG/15 ML SYR IV SCH (18:35)
[2023-03-09] MEDS: oxyCODONE HCL IR 5 MG TAB (IMMEDIATE RELEASE) PO PRN (18:40)
[2023-03-09] MEDS ORDERED: metFORMIN HCL 500 MG TAB PO SCH (21:00)
[2023-03-09] MEDS ORDERED: LANTUS PER UNIT CHARGE SC SCH (21:00)
[2023-03-09] MEDS ORDERED: SENNA 8.6 MG TAB PO SCH (21:00)
[2023-03-09] MEDS ORDERED: LOSARTAN POTASSIUM 50 MG TAB PO SCH (21:00)
[2023-03-09] MEDS ORDERED: ATORVASTATIN 40 MG TAB PO SCH (21:00)
[2023-03-09] MEDS: ASPIRIN 81 MG ECTAB PO SCH (21:25)
[2023-03-09] MEDS: DOCUSATE SODIUM 100 MG CAP PO SCH (21:26)
[2023-03-10] MEDS: ceFAZolin 2000MG 2,000 MG/15 ML SYR IV SCH (01:17)
[2023-03-10] MEDS: SODIUM CHLORIDE 0.9% 1,000 ML IV SCH (01:19)
[2023-03-10] MEDS: ACETAMINOPHEN 500 MG TAB PO SCH (05:07)
[2023-03-10] MEDS: oxyCODONE HCL IR 5 MG TAB (IMMEDIATE RELEASE) PO PRN ×2 (05:07→11:36)
[2023-03-10] MEDS ORDERED: LEVOTHYROXINE SODIUM 25 MCG TABLET PO SCH (06:30)
--- NOTE | 2023-03-10 07:16 | Orthopedic Progress Note ---
Date of Service March 10, 2023 Assessment & Plan (1) Arthritis of right knee: Plan: Postop day 1 status post right total knee arthroplasty PT/OT protocols. Weightbearing as tolerated. DVT prophylaxis-aspirin p.o. twice daily, SCDs, SEDA galeana. Pain management as written. Labs pending DC planning-patient is planning for outpatient physical therapy. Plan for discharge to home today if she is progressing well with her physical therapy. We will have to review her laboratory values prior to discharge. Labs reviewed. Pt stable and ok for DC per Ortho. Admission and Anticipated Discharge Date Admission Date: March 09, 2023 Subjective Post op day 1 Patient awake and alert sitting up in bed. No complaints this morning. Pain is controlled. States that she was ambulating in the room back and forth to the bathroom without difficulty. Hoping to go home today. Physical Exam Physical Exam: Dressings are clean, dry, and intact. Calves are soft nontender. Neurovascular intact. Toes are mobile. She has good dorsiflexion and plantarflexion of the right knee. Hemovac drainage was 50 cc from the previous shift. Results & Data Vital Signs (Past 12 Hours) Vital Signs Temp Pulse Resp BP Pulse Ox O2 Del Method 03/10/23 05:08 36.7 C 73 16 131/67 96 Room Air 03/09/23 23:09 36.7 C 71 16 113/63 95 Room Air 03/09/23 19:38 36.7 C 66 16 118/67 93 Room Air
[2023-03-10 08:10] LABS: Hematocrit (blood only) 35.3 % (37.0-47.0); Hemoglobin 11.7 g/dl (12.0-16.0); Mean Corpuscular Hgb Conc 33.1 g/dL (32.0-36.0); Mean Corpuscular Volume 87.6 fL (80.0-100.0); Mean Platelet Volume 9.4 fL (9.4-12.4); Platelet Count 290 K/uL (130-400); RDW Coefficient of Variation 13.2 % (11.5-14.5); RDW Standard Deviation 42.3 fL (36.4-46.3); Red Blood Count 4.03 M/uL (4.20-5.40); White Blood Count 13.84 K/ul (4.8-10.8)
[2023-03-10 08:26] LABS: BUN Creatinine Ratio 24.7 (10-20); Calcium 8.8 mg/dl (8.6-10.3); Creatinine Clr Calc Pharmacy 70.1 ml/min; Est GFR (African American) 89.4 ml/min; Est GFR (Non-African American) 77.1 ml/min; Potassium 3.8 mmol/L (3.5-5.1)
[2023-03-10] MEDS: DOCUSATE SODIUM 100 MG CAP PO SCH (08:27)
[2023-03-10] MEDS: ASPIRIN 81 MG ECTAB PO SCH (08:27)
[2023-03-10] MEDS: INSULIN ASPART PER UNIT CHARGE SC SCH (08:37)
[2023-03-10] MEDS ORDERED: CHOLECALCIFEROL 1,000 UNITS 25 MCG TAB PO SCH (09:00)
[2023-03-10] MEDS ORDERED: CYANOCOBALAMIN (B-12) 500 MCG TABLET PO SCH (09:00)
[2023-03-10] MEDS ORDERED: MULTIVITAMIN TAB PO SCH (09:00)
== END 2023-03-10 12:03 | disposition home or self-care (01) ==
LOC: ASU 05:52 → 3E 05:52
DX: Z79.84 Long term (current) use of oral hypoglycemic drugs; M17.11 Unilateral primary osteoarthritis, right knee; Z79.890 Hormone replacement therapy; Z79.82 Long term (current) use of aspirin